=== PATIENT | female | born 1965 | race Caucasian/White ===

== ENCOUNTER 2019-03-07 08:41 | Emergency (ER) | payer MEDICAID ==
[2019-03-07] MEDS ORDERED: Sodium Chloride 0.9% 10 ML Syringe FLUSH PRN ×2 (08:46→08:49)
[2019-03-07] MEDS ORDERED: Aspirin 81 MG Tab.Chew PO ONE (08:47)
--- NOTE | 2019-03-07 09:08 | EDM.PDOC ---
ED HPI GENERAL MEDICAL PROBLEM - General Chief Complaint: Chest Pain Stated Complaint: CHEST PAIN Time Seen by Provider: 03/07/19 08:45 Source of Information: Reports: Patient History Limitations: Reports: No Limitations - History of Present Illness INITIAL COMMENTS - FREE TEXT/NARRATIVE: Pt. presents to ER with complaints of acute anterior substernal chest pain. Pt. states that she developed the discomfort when she was getting ready for work today. It did not wake her from sleep. She states that the pain is located in the mid chest and does not radiate elsewhere. No fever or chills. No pain in jaw , arms, neck or back. Denies any nausea or vomiting. No recent illness. No fever or chills that she is aware of. She denies any trauma. Pt. smells highly of hard alcohol. She became upset when she asked how much she drank. She stated "enough". She states that the discomfort is not made worse with movement or deep breathing. Onset: Today Onset Date: 03/07/19 Location: Reports: Chest Quality: Reports: Burning Severity: Moderate Mid-Sternal Chest Pain Score (Numeric/FACES): 10 - Related Data Allergies Allergy/AdvReac Type Severity Reaction Status Date / Time Penicillins Allergy Other Verified 03/07/19 09:08 Home Meds: Home Meds Albuterol Sulfate [Proair Hfa] 2 puff IH Q4H PRN 03/07/19 [History] FLUoxetine HCl [Prozac] 2 tab PO DAILY 03/07/19 [History] Lisinopril/Hydrochlorothiazide [Zestoretic 20-12.5 mg Tablet] 0.5 tab PO DAILY 03/07/19 [History] Omeprazole Magnesium [Prilosec Otc] 20 mg PO DAILY 03/07/19 [History] ED ROS GENERAL - Review of Systems Review Of Systems: See Below Constitutional: Reports: No Symptoms HEENT: Reports: No Symptoms Respiratory: Reports: No Symptoms. Denies: Shortness of Breath Cardiovascular: Reports: Chest Pain Endocrine: Reports: No Symptoms GI/Abdominal: Reports: No Symptoms : Reports: No Symptoms Musculoskeletal: Reports: No Symptoms Skin: Reports: No Symptoms Neurological: Reports: No Symptoms Psychiatric: Reports: No Symptoms Hematologic/Lymphatic: Reports: No Symptoms Immunologic: Reports: No Symptoms ED EXAM, GENERAL - Physical Exam Exam: See Below Exam Limited By: No Limitations General Appearance: Alert, WD/WN, No Apparent Distress Eye Exam: Bilateral Eye: Normal Fundi, Normal Inspection, PERRL Head: Atraumatic, Normocephalic Neck: Normal Inspection, Supple, Non-Tender, Full Range of Motion Respiratory/Chest: No Respiratory Distress, Lungs Clear, Normal Breath Sounds, No Accessory Muscle Use, Chest Non-Tender Cardiovascular: Normal Peripheral Pulses, Regular Rate, Rhythm, No Edema, No Gallop, No JVD, No Murmur, No Rub GI/Abdominal: Normal Bowel Sounds, Soft, Non-Tender, No Organomegaly, No Distention, No Abnormal Bruit, No Mass (Female) Exam: Deferred Rectal (Female) Exam: Deferred Back Exam: Normal Inspection, Full Range of Motion, NT Extremities: Normal Inspection, Normal Range of Motion, Non-Tender, Normal Capillary Refill, No Pedal Edema Neurological: Alert, Oriented, CN II-XII Intact, Normal Cognition, Normal Gait, Normal Reflexes, No Motor/Sensory Deficits Psychiatric: Normal Affect, Normal Mood Skin Exam: Warm, Dry, Intact, Normal Color, No Rash EKG INTERPRETATION Rhythm: NSR [place]: Normal P-Wave: Present QRS: Normal ST-T: Normal QT: Normal Course - Vital Signs Last Recorded V/S: Last Vital Signs Temp 36.6 C 03/07/19 09:12 Pulse 67 03/07/19 09:12 Resp 14 03/07/19 09:12 BP 128/78 03/07/19 09:12 Pulse Ox 96 03/07/19 09:12 - Orders/Labs/Meds Orders: Active Orders 24 hr Category Date Time Status Cardiac Monitoring [RC] CONTINUOUS Care 03/07/19 08:46 Active EKG Documentation Completion [RC] STAT Care 03/07/19 08:46 Active Peripheral IV Insertion Adult [OM.PC] Routine Oth 03/07/19 08:47 Ordered Peripheral IV Insertion Adult [OM.PC] Routine Oth 03/07/19 08:50 Ordered Labs: Laboratory Tests 03/07/19 03/07/19 03/07/19 Range/Units 09:00 09:00 09:00 WBC 4.1 (4.0-10.0) x10^3/uL RBC 4.22 (4.00-5.50) x10^6/uL Hgb 13.8 (12.0-16.0) g/dL Hct 38.4 (33.0-47.0) % MCV 91.0 (78.0-93.0) fL MCH 32.7 H (26.0-32.0) pg MCHC 35.9 (32.0-36.0) g/dL RDW Coeff of Nanette 11.9 (10.0-15.0) % Plt Count 261 (130-400) x10^3/uL Neut % (Auto) 51.7 (50.0-80.0) % Lymph % (Auto) 37.6 (25.0-50.0) % [place] % (Auto) 7.8 (2.0-11.0) % Eos % (Auto) 2.7 (0.0-4.0) % Baso % (Auto) 0.2 (0.2-1.2) % PT 10.2 (10.0-12.8) SEC INR 0.9 L (2.0-3.5) D-Dimer, Quantitative 0.52 (<=0.58) mg/LFEU Sodium 136 (136-145) mmol/L Potassium 3.2 L (3.5-5.1) mmol/L Chloride 97 L (98-107) mmol/L Carbon Dioxide 27 (21-32) mmol/L Anion Gap 15.2 (10-20) mmol/L BUN 5 L (7-18) mg/dL Creatinine 0.6 (0.55-1.02) mg/dL Est Cr Clr Drug Dosing TNP Estimated GFR (MDRD) > 60 Glucose 74 (74-106) mg/dL Calcium 8.9 (8.5-10.1) mg/dL Corrected Calcium 9.30 (8.5-10.1) mg/dL Phosphorus 4.5 (2.6-4.7) mg/dL Magnesium 1.6 L (1.8-2.4) mg/dL Total Bilirubin 0.8 (0.2-1.0) mg/dL AST 61 H (15-37) U/L ALT 58 (14-59) U/L Alkaline Phosphatase 87 (46-116) U/L Troponin I < 0.017 (<=0.056) ng/mL NT-Pro-B Natriuret Pep 218 H (<=125) pg/mL Total Protein 7.3 (6.4-8.2) g/dL Albumin 3.5 (3.4-5.0) g/dL Globulin 3.8 Albumin/Globulin Ratio 0.92 TSH, Ultra Sensitive 0.771 (0.358-3.74) uIU/mL Ethyl Alcohol (0-3) mg/dL 03/07/19 Range/Units 09:00 WBC (4.0-10.0) x10^3/uL RBC (4.00-5.50) x10^6/uL Hgb (12.0-16.0) g/dL Hct (33.0-47.0) % MCV (78.0-93.0) fL MCH (26.0-32.0) pg MCHC (32.0-36.0) g/dL RDW Coeff of Nanette (10.0-15.0) % Plt Count (130-400) x10^3/uL Neut % (Auto) (50.0-80.0) % Lymph % (Auto) (25.0-50.0) % [place] % (Auto) (2.0-11.0) % Eos % (Auto) (0.0-4.0) % Baso % (Auto) (0.2-1.2) % PT (10.0-12.8) SEC INR (2.0-3.5) D-Dimer, Quantitative (<=0.58) mg/LFEU Sodium (136-145) mmol/L Potassium (3.5-5.1) mmol/L Chloride (98-107) mmol/L Carbon Dioxide (21-32) mmol/L Anion Gap (10-20) mmol/L BUN (7-18) mg/dL Creatinine (0.55-1.02) mg/dL Est Cr Clr Drug Dosing Estimated GFR (MDRD) Glucose (74-106) mg/dL Calcium (8.5-10.1) mg/dL Corrected Calcium (8.5-10.1) mg/dL Phosphorus (2.6-4.7) mg/dL Magnesium (1.8-2.4) mg/dL Total Bilirubin (0.2-1.0) mg/dL AST (15-37) U/L ALT (14-59) U/L Alkaline Phosphatase (46-116) U/L Troponin I (<=0.056) ng/mL NT-Pro-B Natriuret Pep (<=125) pg/mL Total Protein (6.4-8.2) g/dL Albumin (3.4-5.0) g/dL Globulin Albumin/Globulin Ratio TSH, Ultra Sensitive (0.358-3.74) uIU/mL Ethyl Alcohol 113 H (0-3) mg/dL Meds: Medications Discontinued Medications Generic Name Dose Route Start Last Admin Trade Name Freq PRN Reason Stop Dose Admin Aspirin 324 mg 03/07/19 08:47 03/07/19 08:45 Aspirin PO 03/07/19 08:48 324 mg ONETIME ONE Administration Sodium Chloride 10 ml 03/07/19 08:46 Saline Flush FLUSH ASDIRECTED PRN Keep Vein Open Sodium Chloride 10 ml 03/07/19 08:49 Saline Flush FLUSH ASDIRECTED PRN Keep Vein Open - Radiology Interpretation Free Text/Narrative:: chest x-ray is negative Departure - Departure Time of Disposition: 09:45 Disposition: Home, Self-Care 01 Condition: Good Clinical Impression: Atypical chest pain - Discharge Information Instructions: Nonspecific Chest Pain, [id number] Referrals: PCP,Unknown [Primary Care Provider] - Forms: ED Department Discharge Additional Instructions: Home to rest. Drink plenty of fluids. Return to ER if you have increased discomfort. Recheck in clinic in 10-14 days. - My Orders Last 24 Hours: My Active Orders 03/07/19 08:46 Cardiac Monitoring [RC] CONTINUOUS EKG Documentation Completion [RC] STAT 03/07/19 08:47 Peripheral IV Insertion Adult [OM.PC] Routine 03/07/19 08:50 Peripheral IV Insertion Adult [OM.PC] Routine - Assessment/Plan Last 24 Hours: My Active Orders 03/07/19 08:46 Cardiac Monitoring [RC] CONTINUOUS EKG Documentation Completion [RC] STAT 03/07/19 08:47 Peripheral IV Insertion Adult [OM.PC] Routine 03/07/19 08:50 Peripheral IV Insertion Adult [OM.PC] Routine Plan: Home to rest. Drink plenty of fluids. Return to ER if you have increased discomfort. Recheck in clinic in 10-14 days.
--- NOTE | 2019-03-07 09:36 | CR ---
[id number] RAD/RAD Chest PA or AP 1V EXAM: SINGLE VIEW CHEST. INDICATION: CHEST PAIN COMPARISON: NO PREVIOUS SIMILAR EXAM IS AVAILABLE FINDINGS: The lungs are clear. The cardiomediastinal contour is normal. There is no pneumothorax. There is a slight scoliosis. IMPRESSION: NO PNEUMONIA OR EDEMA. NO PNEUMOTHORAX. Jorge Najera MD 03/07/19 0934 Thank you for allowing us to participate in the care of your patient.
[2019-03-07 09:46] LABS: ANION GAP 15.2 mmol/L (10-20); CHLORIDE,CL 97 mmol/L (98-107); SODIUM,NA 136 mmol/L (136-145)
== END 2019-03-07 09:57 | disposition home or self-care (01) ==
LOC: VM.ED 08:41
DX: R07.2 Precordial pain (principal); Z88.0 Allergy status to penicillin; Z79.899 Other long term (current) drug therapy
CPT/HCPCS: 71045; 80053; 83735; 83880; 84100; 84443; 84484; 85025; 85379; 85610; 93005; 99285-25; A9270-GY; G0480

== ENCOUNTER 2020-09-14 23:06 | Emergency (ER) | payer MEDICAID ==
--- NOTE | 2020-09-15 00:13 | EDM.PDOC ---
ED HPI GENERAL MEDICAL PROBLEM - General Chief Complaint: Lower Extremity Injury/Pain Stated Complaint: leg pain Time Seen by Provider: 09/14/20 23:10 Source of Information: Reports: Patient History Limitations: Reports: Intoxication - History of Present Illness INITIAL COMMENTS - FREE TEXT/NARRATIVE: Pt. presents to ER with complaints of distal upper leg/knee pain post fall. Pt. states that she was going downstairs to do laundry and fell. Pt. states that her injury is isolated to her distal upper leg/superior knee area. She states that she does not have any pain unless she is bearing weight in the extremity. Denies striking head. No neck pain. Denies any chest or abdominal trauma. No other musculoskeletal complaint. Pt. admits to drinking alcohol today, but is alert to time, date and place. She can remember the events of the incident, and denies any LOC. Denies any fever, chills, weakness, cough, chest pain or shortness of breath. Onset: Today Location: Reports: Lower Extremity, Right Quality: Reports: Throbbing Severity: Moderate Right Leg Pain Score (Numeric/FACES): 2 - Related Data Allergies Allergy/AdvReac Type Severity Reaction Status Date / Time hydrocodone Allergy Other Verified 09/14/20 23:08 latex Allergy Rash Verified 09/14/20 23:08 Penicillins Allergy Other Verified 09/14/20 23:08 Home Meds: Home Meds Albuterol Sulfate [Proair Hfa] 2 puff IH Q4H PRN 03/07/19 [History] FLUoxetine HCl [Prozac] 2 tab PO DAILY 03/07/19 [History] Lisinopril/Hydrochlorothiazide [Zestoretic 20-12.5 mg Tablet] 0.5 tab PO DAILY 03/07/19 [History] Omeprazole Magnesium [Prilosec Otc] 20 mg PO DAILY 03/07/19 [History] Past Medical History Cardiovascular History: Reports: Hypertension Respiratory History: Reports: COPD Gastrointestinal History: Reports: Other (See Below) Other Gastrointestinal History: positive fit test Psychiatric History: Reports: Anxiety Social & Family History - Tobacco Use Tobacco Use Status *Q: Current Every Day Tobacco User Years of Tobacco use: 30 Packs/Tins Daily: 1 Review of Systems - Review of Systems Review Of Systems: See Below Constitutional: Reports: No Symptoms Ears: Reports: No Symptoms Nose: Reports: No Symptoms Mouth/Throat: Reports: No Symptoms Respiratory: Reports: No Symptoms Cardiovascular: Reports: No Symptoms GI/Abdominal: Reports: No Symptoms Musculoskeletal: Reports: Leg Pain Skin: Reports: No Symptoms Neurological: Reports: No Symptoms Psychiatric: Reports: No Symptoms ED EXAM, GENERAL - Physical Exam Exam: See Below Exam Limited By: No Limitations General Appearance: Alert, WD/WN, No Apparent Distress Extremities: Normal Inspection, Other (No tenderness on palpation of the R lower extremity. No obvious crepitus. No increased discomfort with active of passive ROM to the R knee. She does complain of discomfort with weight bearing, however.) Course - Vital Signs Last Recorded V/S: Last Vital Signs Temp 36.5 C 09/14/20 23:10 Pulse 81 09/14/20 23:10 Resp 18 09/14/20 23:10 BP 178/99 H 09/14/20 23:10 Pulse Ox 99 09/14/20 23:10 - Orders/Labs/Meds Orders: Active Orders 24 hr Category Date Time Status Femur Min 1V Rt [CR] Stat Exams 09/14/20 23:15 Taken Knee 3V Rt [CR] Stat Exams 09/14/20 23:15 Taken Departure - Departure Time of Disposition: 00:45 Disposition: Home, Self-Care 01 Clinical Impression: Right knee sprain - Discharge Information Instructions: Acute Knee Pain, Adult Referrals: PCP,None [Primary Care Provider] - Forms: ED Department Discharge Additional Instructions: Home to rest. I do not see any obvious fracture. If the radiologist sees anything I will let you know. Ice painful area for 10-15 min every 1-2 hours. Follow-up in clinic in 10-14 days. Sepsis Event Note (ED) - Evaluation Sepsis Screening Result: No Definite Risk - Focused Exam Vital Signs: Vital Signs Temp Pulse Resp BP Pulse Ox 09/14/20 23:10 36.5 C 81 18 178/99 H 99 - My Orders Last 24 Hours: My Active Orders 09/14/20 23:15 Femur Min 1V Rt [CR] Stat Knee 3V Rt [CR] Stat - Assessment/Plan Last 24 Hours: My Active Orders 09/14/20 23:15 Femur Min 1V Rt [CR] Stat Knee 3V Rt [CR] Stat Plan: No fracture noted on radiographs of R knee/femur. She does have an effusion of the R knee. NADIR wrap applied. Pt. is anxious to be discharged. Advised to take 3 ibuprofen 200mg tabs every 6 hours. Ice knee for 20 min every hour. Elevate extremity. If not improvement in discomfort, follow-up in clinic in 10-14 days for further evaluation/imaging.
--- NOTE | 2020-09-15 09:57 | CR ---
[id number] RAD/RAD Femur Right 1V Exam: RAD Femur Right 1V Clinical Data: TRAUMA COMPARISON: NO PREVIOUS SIMILAR EXAM IS AVAILABLE FINDINGS: No fracture or dislocation is seen IMPRESSION: NEGATIVE EXAM Jorge Najera MD 09/15/20 0956 Thank you for allowing us to participate in the care of your patient.
--- NOTE | 2020-09-15 09:58 | CR ---
[id number] RAD/RAD Knee Right 3V EXAM: RAD Knee Right 3V CLINICAL DATA: TRAUMA COMPARISON: NO PREVIOUS SIMILAR EXAM IS AVAILABLE. FINDINGS: There is a large effusion There is no fracture or dislocation. IMPRESSION: SOFT TISSUE INJURY Jorge Najera MD 09/15/20 0957 Thank you for allowing us to participate in the care of your patient.
== END 2020-09-15 00:45 | disposition home or self-care (01) ==
LOC: VM.ED 23:06
DX: S83.91XA Sprain of unspecified site of right knee, initial encounter (principal); I10 Essential (primary) hypertension; J44.9 Chronic obstructive pulmonary disease, unspecified; F41.9 Anxiety disorder, unspecified; F17.210 Nicotine dependence, cigarettes, uncomplicated; Z79.899 Other long term (current) drug therapy; Z88.5 Allergy status to narcotic agent; Z91.040 Latex allergy status; Z88.0 Allergy status to penicillin; W10.9XXA Fall (on) (from) unspecified stairs and steps, initial encounter
CPT/HCPCS: 73562-RT; 99283; 99283-25

== ENCOUNTER 2020-12-08 09:37 | Emergency (ER) | payer MEDICAID ==
[2020-12-08] MEDS ORDERED: Sodium Chloride 0.9% 10 ML Syringe FLUSH PRN (10:10)
[2020-12-08] MEDS ORDERED: Lactated Ringers 1,000 ML IV ONE (10:13)
[2020-12-08] MEDS ORDERED: diphenhydrAMINE 50 MG/ML SDV IVPUSH ONE (10:13)
[2020-12-08] MEDS ORDERED: Morphine 4 MG/ML Syringe IVPUSH ONE (10:14)
[2020-12-08 10:50] LABS: PTT,PARTIAL THROMBOPLSTIN TIME 23.8 SEC (25.6-32.8)
[2020-12-08 10:53] LABS: CHLORIDE,CL 95 mmol/L (98-107); SODIUM,NA 133 mmol/L (136-145)
[2020-12-08 10:54] LABS: ANION GAP 13.6 mmol/L (5-15)
[2020-12-08 11:23] LABS: BARBITURATE SCREEN,URINE NEGATIVE (NEGATIVE); BENZODIAZEPINES SCREEN,URINE NEGATIVE (NEGATIVE); EDDP,URINE SCREEN NEGATIVE (NEGATIVE); METHAMPHETAMINE SCREEN, URINE NEGATIVE (NEGATIVE); TCA SCREEN,URINE NEGATIVE (NEGATIVE); THC SCREEN,URINE 50 NG/ML NEGATIVE (NEGATIVE)
[2020-12-08] MEDS ORDERED: Iopamidol 612 MG/ML 100 ML Bottle IVPUSH ONE (12:06)
--- NOTE | 2020-12-08 12:25 | CR ---
[id number] RAD/RAD Chest PA And Lateral EXAM: RAD Chest PA And Lateral INDICATION: FALL RIGHT RIB PAIN, SHORTNESS OF BREATH. COMPARISON: March 16, 2019. DISCUSSION: Cardiomediastinal silhouette is normal in size and contour. Lungs are clear. No pleural effusion or pneumothorax. No visible fracture. IMPRESSION: Negative examination of the chest. Jefferson Adams MD 12/08/20 [id number] Thank you for allowing us to participate in the care of your patient.
--- NOTE | 2020-12-08 12:33 | CT ---
[id number] CT/CT Abdomen Pelvis W IV EXAM: CT Abdomen Pelvis W IV CLINICAL DATA: FALL RIGHT LOWER FLANK TRAUMA, ? HUDSON TURNERS SYNDROME. COMPARISON STUDY: None. FINDINGS: Lung bases are clear. Diffusely decreased hepatic density suggesting underlying steatosis. Correlate with LFTs. No focal lesion or biliary ductal dilation. Portal vein is normal in caliber. Gallbladder and common bile duct are unremarkable. Pancreas, adrenal glands, spleen, and kidneys are unremarkable. No bowel obstruction or inflammation. Appendix is normal. No lymphadenopathy, free fluid, or pneumoperitoneum. Uterus and adnexal regions are unremarkable. Urinary bladder is normal. Aorta atherosclerosis. No aneurysm. L5-S1 diffuse disc bulge most prominent along its posterior segment seen best on series 4 image 54. In combination with facet joint arthropathy, there does appear to be moderate to moderate/severe central canal stenosis. 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 Subchondral remodeling suggests full-thickness cartilage thinning/fissuring. Bilateral sacroiliac osteoarthritis as well. Acute nondisplaced right 11th and 12th rib fractures. IMPRESSION: Acute nondisplaced right 11th and 12th rib fractures. No acute findings in the abdomen or pelvis. Chronic findings are described above. Jefferson Adams MD 12/08/20 4545 Thank you for allowing us to participate in the care of your patient.
[2020-12-08] MEDS ORDERED: Ketorolac 30 MG/ML SDV IM ONE (13:11)
[2020-12-08] MEDS ORDERED: LORazepam 2 MG/ML SDV IVPUSH ONE (13:12)
[2020-12-08] MEDS ORDERED: MVI, Adult with Vitamin K 10 ML, Folic Acid 1 MG, Thiamine 100 MG in Sodium Chloride 0.... IV SCH ×4 (13:15)
[2020-12-08] MEDS ORDERED: Multivitamins w-Iron/Ca/FA/Min 1 TAB, Thiamine 100 MG, Folic Acid 1 MG, Magnesium Oxide... PO ONE ×3 (13:15)
[2020-12-08] MEDS ORDERED: Ketorolac 30 MG/ML SDV IVPUSH ONE (13:16)
[2020-12-08] MEDS ORDERED: Take Home: traMADol 50 MG, 4 Tab Pack PO ONE (13:22)
--- NOTE | 2020-12-08 13:28 | EDM.PDOC ---
ED HPI GENERAL MEDICAL PROBLEM - General Chief Complaint: General Stated Complaint: RT SIDE PAIN Time Seen by Provider: 12/08/20 09:45 Source of Information: Reports: Patient History Limitations: Reports: No Limitations - History of Present Illness INITIAL COMMENTS - FREE TEXT/NARRATIVE: Patient comes emergency department today from home with complaints of right rib pain and abdominal pain. This patient drinks on a daily basis. She was intoxicated last night when she was walking into her garage she tripped on the ground fell landing on the right side of her abdomen and her rib cage striking it on the snowblower. From what she can recall she did not hit her head. She did not have a loss of consciousness. She went to bed and woke up this morning and has severe pain in the right chest wall as well as her abdomen. She has no nausea or vomiting. No headache visual acuity changes. No diplopia. No neck pain. No back pain. She complains of the left lateral mid axillary chest wall pain with deep breath cough and movement. She is really not short of breath until she takes a deep breath or moves. She has no midsternal chest pain. She denies any generalized weakness dizziness lightheadedness. No syncope. She does complain of right flank pain and right lower abdominal pain. She noticed there was a bruise in the right lower aspect of her abdomen. She denies any hematuria dysuria or urinary frequency. No black or tarry stools. No change in the functionality of her upper or lower extremities. She does have some chronic shaking to her arms especially after heavy night of drinking. No Covid exposure no Covid symptoms. Right Thoracic Pain Score (Numeric/FACES): 10 - Related Data Allergies Allergy/AdvReac Type Severity Reaction Status Date / Time hydrocodone Allergy Other Verified 12/08/20 09:48 latex Allergy Rash Verified 12/08/20 09:48 oxycodone Allergy Nausea and Verified 12/08/20 09:48 Vomiting Penicillins Allergy Other Verified 12/08/20 09:48 Home Meds: Home Meds Albuterol Sulfate [Proair Hfa] 2 puff IH Q4H PRN 03/07/19 [History] FLUoxetine HCl [Prozac] 2 tab PO DAILY 03/07/19 [History] Lisinopril/Hydrochlorothiazide [Zestoretic 20-12.5 mg Tablet] 0.5 tab PO DAILY 03/07/19 [History] Omeprazole Magnesium [Prilosec Otc] 20 mg PO DAILY 03/07/19 [History] Harley/Vit B12/Folic Acid/Vit B6 [Folic Acid-Vit B6-Vit B12 Tab] 1 each PO DAILY #30 tablet 12/08/20 [Rx] Magnesium Oxide 400 mg PO DAILY #30 tab 12/08/20 [Rx] Thiamine [Vitamin B-1] 100 mg PO DAILY #30 tablet 12/08/20 [Rx] traMADol [Ultram] 50 mg PO Q6H PRN #6 tab 12/08/20 [Rx] Past Medical History Cardiovascular History: Reports: Hypertension Respiratory History: Reports: COPD Gastrointestinal History: Reports: Other (See Below) Other Gastrointestinal History: positive fit test Psychiatric History: Reports: Anxiety Social & Family History - Tobacco Use Tobacco Use Status *Q: Current Every Day Tobacco User Years of Tobacco use: 30 Packs/Tins Daily: 1 - Recreational Drug Use Recreational Drug Use: No ED ROS GENERAL - Review of Systems Review Of Systems: Comprehensive ROS is negative, except as noted in HPI. ED EXAM, GENERAL - Physical Exam Exam: See Below Free Text/Narrative:: The patient is anxious and quite shakey and tremulous with any physical movement. She does not appear in an respiratory distress. Exam Limited By: No Limitations General Appearance: Alert, WD/WN, Anxious Eye Exam: Bilateral Eye: EOMI, PERRL Ears: Normal External Exam, Normal TMs Nose: Normal Inspection, Normal Mucosa Throat/Mouth: Normal Inspection, Normal Lips, Normal Oropharynx, Normal Voice Head: Atraumatic, Normocephalic Neck: Normal Inspection, Supple, Non-Tender, Full Range of Motion. No: Tender Lateral, Tender Midline Respiratory/Chest: No Respiratory Distress, Normal Breath Sounds, No Accessory Muscle Use, Splinting, Other (She does have tenderness along the right mid axillary border at the very distal end of the ribs about 07/07/12. There is no flail segment. There is no bruising swelling ecchymosis subcutaneous emphysema.). No: Retractions Cardiovascular: Normal Peripheral Pulses, Regular Rate, Rhythm Peripheral Pulses: 2+: Radial (L), Radial (R), Posterior Tibial (L), Posterior Tibial (R), Dorsalis Pedis (L), Dorsalis Pedis (R) GI/Abdominal: Normal Bowel Sounds, Soft, Pelvis Stable, Distended, Guarding (TO the RUQ and RLQ right next to ecchymosis concerning for Lance turners sign.), Tender (She has generalized tenderness ). No: Rigid, Rebound (Female) Exam: Deferred Rectal (Female) Exam: Deferred Back Exam: Normal Inspection, Full Range of Motion, CVA Tenderness (R). No: CVA Tenderness (L), Paraspinal Tenderness, Vertebral Tenderness Extremities: Normal Inspection, Normal Range of Motion, No Pedal Edema, Normal Capillary Refill Neurological: Alert, Oriented, Normal Cognition, Normal Gait, No Motor/Sensory Deficits Psychiatric: Anxious Skin Exam: Warm, Dry, Normal Color, No Rash Lymphatic: No Adenopathy Course - Vital Signs Last Recorded V/S: Last Vital Signs Temp 97.9 F 12/08/20 09:45 Pulse 94 12/08/20 09:45 Resp 20 12/08/20 09:45 BP 145/90 H 12/08/20 09:45 Pulse Ox 96 12/08/20 09:45 - Orders/Labs/Meds Orders: Active Orders 24 hr Category Date Time Status Peripheral IV Insertion Adult [OM.PC] Stat Oth 12/08/20 10:10 Ordered Labs: Laboratory Tests 12/08/20 12/08/20 12/08/20 Range/Units 10:24 10:24 10:24 WBC 7.0 (4.0-10.0) x10^3/uL RBC 4.47 (4.00-5.50) x10^6/uL Hgb 14.8 (12.0-16.0) g/dL Hct 42.1 (33.0-47.0) % MCV 94.2 H D (78.0-93.0) fL MCH 33.1 H (26.0-32.0) pg MCHC 35.2 (32.0-36.0) g/dL RDW Coeff of Nanette 11.7 (10.0-15.0) % Plt Count 228 (130-400) x10^3/uL Neut % (Auto) 73.4 (50.0-80.0) % Lymph % (Auto) 17.7 L (25.0-50.0) % [place] % (Auto) 7.7 (2.0-11.0) % Eos % (Auto) 1.1 (0.0-4.0) % Baso % (Auto) 0.1 L (0.2-1.2) % PT 9.9 (9.9-12.5) SEC INR 0.9 L (2.0-3.5) APTT 23.8 L (25.6-32.8) SEC Sodium 133 L (136-145) mmol/L Potassium 3.6 (3.5-5.1) mmol/L Chloride 95 L (98-107) mmol/L Carbon Dioxide 28 (21-32) mmol/L Anion Gap 13.6 (5-15) mmol/L BUN 4 L (7-18) mg/dL Creatinine 0.7 (0.55-1.02) mg/dL Est Cr Clr Drug Dosing TNP Estimated GFR (MDRD) > 60 Glucose 85 (74-106) mg/dL Lactic Acid (0.4-2.0) mmol/L Calcium 9.2 (8.5-10.1) mg/dL Corrected Calcium 9.36 (8.5-10.1) mg/dL Magnesium (1.8-2.4) mg/dL Total Bilirubin 0.8 (0.2-1.0) mg/dL AST 95 H (15-37) U/L ALT 89 H (14-59) U/L Alkaline Phosphatase 109 (46-116) U/L Total Protein 8.0 (6.4-8.2) g/dL Albumin 3.8 (3.4-5.0) g/dL Globulin 4.2 Albumin/Globulin Ratio 0.90 Lipase 112 (73-393) U/L Urine Color (YELLOW) Urine Appearance (CLEAR) Urine pH (5.0-8.0) Ur Specific [place] Urine Protein (NEGATIVE) mg/dL Urine Glucose (UA) (NEGATIVE) mg/dL Urine Ketones (NEGATIVE) mg/dL Urine Occult Blood (NEGATIVE) Urine Nitrite (NEGATIVE) Urine Bilirubin (NEGATIVE) Urine Urobilinogen (0.2) EU/dL Ur Leukocyte Esterase (NEGATIVE) Urine Opiates Screen (NEGATIVE) Ur Buprenorphine Scrn (NEGATIVE) Ur Oxycodone Screen (NEGATIVE) Ur EDDP (Meth Metab) (NEGATIVE) Urine Methadone Screen (NEGATIVE) Ur Barbiturates Screen (NEGATIVE) Ur Tricyclics Screen (NEGATIVE) Ur Phencyclidine Scrn (NEGATIVE) Ur Amphetamine Screen (NEGATIVE) U Methamphetamines Scrn (NEGATIVE) Urine MDMA Screen (NEGATIVE) U Benzodiazepines Scrn (NEGATIVE) U Cocaine Metab Screen (NEGATIVE) U Marijuana (THC) Screen (NEGATIVE) Ethyl Alcohol 64 H (0-3) mg/dL 12/08/20 12/08/20 12/08/20 Range/Units 10:24 10:24 11:11 WBC (4.0-10.0) x10^3/uL RBC (4.00-5.50) x10^6/uL Hgb (12.0-16.0) g/dL Hct (33.0-47.0) % MCV (78.0-93.0) fL MCH (26.0-32.0) pg MCHC (32.0-36.0) g/dL RDW Coeff of Nanette (10.0-15.0) % Plt Count (130-400) x10^3/uL Neut % (Auto) (50.0-80.0) % Lymph % (Auto) (25.0-50.0) % [place] % (Auto) (2.0-11.0) % Eos % (Auto) (0.0-4.0) % Baso % (Auto) (0.2-1.2) % PT (9.9-12.5) SEC INR (2.0-3.5) APTT (25.6-32.8) SEC Sodium (136-145) mmol/L Potassium (3.5-5.1) mmol/L Chloride (98-107) mmol/L Carbon Dioxide (21-32) mmol/L Anion Gap (5-15) mmol/L BUN (7-18) mg/dL Creatinine (0.55-1.02) mg/dL Est Cr Clr Drug Dosing Estimated GFR (MDRD) Glucose (74-106) mg/dL Lactic Acid 1.7 (0.4-2.0) mmol/L Calcium (8.5-10.1) mg/dL Corrected Calcium (8.5-10.1) mg/dL Magnesium 1.6 L (1.8-2.4) mg/dL Total Bilirubin (0.2-1.0) mg/dL AST (15-37) U/L ALT (14-59) U/L Alkaline Phosphatase (46-116) U/L Total Protein (6.4-8.2) g/dL Albumin (3.4-5.0) g/dL Globulin Albumin/Globulin Ratio Lipase (73-393) U/L Urine Color Yellow (YELLOW) Urine Appearance Clear (CLEAR) Urine pH 7.0 (5.0-8.0) Ur Specific [place] 1.015 Urine Protein Negative (NEGATIVE) mg/dL Urine Glucose (UA) Negative (NEGATIVE) mg/dL Urine Ketones Negative (NEGATIVE) mg/dL Urine Occult Blood Negative (NEGATIVE) Urine Nitrite Negative (NEGATIVE) Urine Bilirubin Negative (NEGATIVE) Urine Urobilinogen 0.2 (0.2) EU/dL Ur Leukocyte Esterase Negative (NEGATIVE) Urine Opiates Screen (NEGATIVE) Ur Buprenorphine Scrn (NEGATIVE) Ur Oxycodone Screen (NEGATIVE) Ur EDDP (Meth Metab) (NEGATIVE) Urine Methadone Screen (NEGATIVE) Ur Barbiturates Screen (NEGATIVE) Ur Tricyclics Screen (NEGATIVE) Ur Phencyclidine Scrn (NEGATIVE) Ur Amphetamine Screen (NEGATIVE) U Methamphetamines Scrn (NEGATIVE) Urine MDMA Screen (NEGATIVE) U Benzodiazepines Scrn (NEGATIVE) U Cocaine Metab Screen (NEGATIVE) U Marijuana (THC) Screen (NEGATIVE) Ethyl Alcohol (0-3) mg/dL 12/08/20 Range/Units 11:11 WBC (4.0-10.0) x10^3/uL RBC (4.00-5.50) x10^6/uL Hgb (12.0-16.0) g/dL Hct (33.0-47.0) % MCV (78.0-93.0) fL MCH (26.0-32.0) pg MCHC (32.0-36.0) g/dL RDW Coeff of Nanette (10.0-15.0) % Plt Count (130-400) x10^3/uL Neut % (Auto) (50.0-80.0) % Lymph % (Auto) (25.0-50.0) % [place] % (Auto) (2.0-11.0) % Eos % (Auto) (0.0-4.0) % Baso % (Auto) (0.2-1.2) % PT (9.9-12.5) SEC INR (2.0-3.5) APTT (25.6-32.8) SEC Sodium (136-145) mmol/L Potassium (3.5-5.1) mmol/L Chloride (98-107) mmol/L Carbon Dioxide (21-32) mmol/L Anion Gap (5-15) mmol/L BUN (7-18) mg/dL Creatinine (0.55-1.02) mg/dL Est Cr Clr Drug Dosing Estimated GFR (MDRD) Glucose (74-106) mg/dL Lactic Acid (0.4-2.0) mmol/L Calcium (8.5-10.1) mg/dL Corrected Calcium (8.5-10.1) mg/dL Magnesium (1.8-2.4) mg/dL Total Bilirubin (0.2-1.0) mg/dL AST (15-37) U/L ALT (14-59) U/L Alkaline Phosphatase (46-116) U/L Total Protein (6.4-8.2) g/dL Albumin (3.4-5.0) g/dL Globulin Albumin/Globulin Ratio Lipase (73-393) U/L Urine Color (YELLOW) Urine Appearance (CLEAR) Urine pH (5.0-8.0) Ur Specific [place] Urine Protein (NEGATIVE) mg/dL Urine Glucose (UA) (NEGATIVE) mg/dL Urine Ketones (NEGATIVE) mg/dL Urine Occult Blood (NEGATIVE) Urine Nitrite (NEGATIVE) Urine Bilirubin (NEGATIVE) Urine Urobilinogen (0.2) EU/dL Ur Leukocyte Esterase (NEGATIVE) Urine Opiates Screen Negative (NEGATIVE) Ur Buprenorphine Scrn Negative (NEGATIVE) Ur Oxycodone Screen Negative (NEGATIVE) Ur EDDP (Meth Metab) Negative (NEGATIVE) Urine Methadone Screen Negative (NEGATIVE) Ur Barbiturates Screen Negative (NEGATIVE) Ur Tricyclics Screen Negative (NEGATIVE) Ur Phencyclidine Scrn Negative (NEGATIVE) Ur Amphetamine Screen Negative (NEGATIVE) U Methamphetamines Scrn Negative (NEGATIVE) Urine MDMA Screen Negative (NEGATIVE) U Benzodiazepines Scrn Negative (NEGATIVE) U Cocaine Metab Screen Negative (NEGATIVE) U Marijuana (THC) Screen Negative (NEGATIVE) Ethyl Alcohol (0-3) mg/dL Meds: Medications Discontinued Medications Generic Name Dose Route Start Last Admin Trade Name Freq PRN Reason Stop Dose Admin Multivitamins/Minerals 1 tab/ 0 tab 12/08/20 13:15 12/08/20 13:33 Thiamine HCl 100 mg/ Folic PO 12/08/20 13:16 1 each Acid 1 mg/ Magnesium Oxide 400 ONETIME ONE Administration mg Diphenhydramine HCl 25 mg 12/08/20 10:13 12/08/20 10:28 Diphenhydramine 50 Mg/Ml Sdv IVPUSH 12/08/20 10:14 25 mg ONETIME ONE Administration Lactated Ringer's 1,000 mls @ 999 mls/hr 12/08/20 10:13 12/08/20 10:25 Ringers, Lactated IV 12/08/20 11:13 999 mls/hr ONETIME ONE Administration Multivitamins/Minerals 10 ml/ 1,011.2 mls @ 999 mls/hr 12/08/20 13:15 Folic Acid 1 mg/ Thiamine HCl IV 12/10/20 14:16 100 mg/ Sodium Chloride Q24H JACOB Iopamidol 100 ml 12/08/20 12:06 12/08/20 12:06 Iopamidol 612 Mg/Ml 100 Ml Bottle IVPUSH 12/08/20 12:07 100 ml ONETIME ONE Administration Ketorolac Tromethamine 30 mg 12/08/20 13:11 Ketorolac 30 Mg/Ml Sdv IM 12/08/20 13:12 ONETIME ONE Ketorolac Tromethamine 30 mg 12/08/20 13:16 12/08/20 13:30 Ketorolac 30 Mg/Ml Sdv IVPUSH 12/08/20 13:17 30 mg ONETIME ONE Administration Lorazepam 1 mg 12/08/20 13:12 12/08/20 13:28 Lorazepam 2 Mg/Ml Sdv IVPUSH 12/08/20 13:13 1 mg STAT ONE Administration Morphine Sulfate 4 mg 12/08/20 10:14 12/08/20 10:31 Morphine 4 Mg/Ml Syringe IVPUSH 12/08/20 10:15 4 mg ONETIME ONE Administration Sodium Chloride 10 ml 12/08/20 10:10 Sodium Chloride 0.9% 10 Ml Syringe FLUSH ASDIRECTED PRN Keep Vein Open Tramadol HCl 1 packet 12/08/20 13:22 12/08/20 13:36 Take Home: Tramadol 50 Mg, 4 Tab Pack PO 12/08/20 13:23 1 packet ONETIME ONE Administration - Radiology Interpretation Free Text/Narrative:: Chest x-ray per radiology shows negative examination of the chest. CT abdomen pelvis with IV contrast. Shows acute nondisplaced right 11th and 12th rib fractures. No acute findings in the abdomen or pelvis. - Re-Assessments/Exams Free Text/Narrative Re-Assessment/Exam: 12/08/20 IV established. Labs are drawn. Benadryl 25 mg IV push for pain and relaxation. Morphine 4 mg IV push. Chest x-ray ordered as well as CT of the abdomen and pelvis. Laboratory evaluation with a white blood cell count of 7.0, hemoglobin 14.8, platelet 228. CMP with a sodium of 133 potassium 3.6 chloride 95, normal creatinine of 0.7 with a BUN of 4, mild elevation of her AST at 95 and ALT at 89 normal T bili and alkaline phosphatase. Lactic acid is normal at 1.7. Magnesium is low at 1.6. Lipase 112. Urinalysis is negative for any blood or infectious appearing concerns. Urine drug screen negative for all tested values. Alcohol level 64. Patient still was quite shaky anxious and nervous. Chest x-ray as well as the abdomen and pelvis concerning for the right 11th and 12th rib fractures. Her pain is much improved after the above therapy. She does admit that she is a daily alcohol drinker and drinks 2 extreme every night. She is not had a night without drinking for about 7 months. She is not interested at this time for any assistance with her alcohol misuse disorder. She was given a banana pack of oral vitamins in the emergency department. She was given ketorolac with improved pain as well as Ativan for alcohol withdrawal syndrome. Although this patient clearly has a history of substance abuse she clearly does have some rib fractures and still needs some pain management. I will send her home with a very short course of tramadol for pain management. She does consent to not taking these if she is drinking which she typically does not do during the day and only at night. Is uninterested for assistance with alcohol treatment at this time although she is interested in discussing this with someone at the [facility] [place]. I did express with her that most likely with her rather large amount of regular alcohol ingestion that her withdrawal could be rather serious and most likely needs to be done in the hospital. At any time when she would like help with this please contact the emergency department or your primary care doctor and we can assist with your medical detox. Otherwise it simply pain management and rest the next couple of days for her rib fractures. She is comfortable with this plan and her questions were answered. Departure - Departure Time of Disposition: 13:22 Disposition: Home, Self-Care 01 Clinical Impression: Alcoholism, Hypomagnesemia Ribs, multiple fractures Qualifiers: Encounter type: initial encounter Fracture type: closed Laterality: right Qualified Code(s): S22.41XA - Multiple fractures of ribs, right side, initial encounter for closed fracture - Discharge Information Prescriptions: Harley/Vit B12/Folic Acid/Vit B6 [Folic Acid-Vit B6-Vit B12 Tab] 1 each PO DAILY #30 tablet Magnesium Oxide 400 mg PO DAILY #30 tab traMADol [Ultram] 50 mg PO Q6H PRN #6 tab PRN Reason: Pain Thiamine [Vitamin B-1] 100 mg PO DAILY #30 tablet Instructions: Rib Fracture, [id number] Referrals: Ingris Clayton, [employer] [Primary Care Provider] - Forms: ED Department Discharge, ED Return to Work/School Form Additional Instructions: Home today rest. Ice to the sore areas. Make sure and drink plenty of fluids especially electrolyte containing materials such as Gatorade and or Powerade. Start taking a daily multivitamin with iron Folic Acid 1mg daily RX to [facility]. Thiamine 100mg daily RX to [facility]. Magnesium 400mg daily. RX to [facility]. Make sure and eat regular meals. Seek out assistance with the [facility] here in [place] or on the phone at [phone]. If you ever are in need of assistance with quitting drinking please see your PCP or recheck in the ED. Return to the ED if new or worsening symptoms. Follow up with PCP in a week if any concerns or assistance. Tylenol and or Ibuprofen as needed for pain. If pain not controlled with above. Tramadol 1 tablet every 6 hrs with food as needed for pain. Caution sedation. DO NOT TAKE WHILE DRINKING ALCOHOL!!!!. Starter pack sent home from the ED and RX sent to the pharmacy. Sepsis Event Note (ED) - Evaluation Sepsis Screening Result: No Definite Risk - Focused Exam Vital Signs: Vital Signs Temp Pulse Resp BP Pulse Ox 12/08/20 09:45 97.9 F 94 20 145/90 H 96 - My Orders Last 24 Hours: My Active Orders 12/08/20 10:10 Peripheral IV Insertion Adult [OM.PC] Stat - Assessment/Plan Last 24 Hours: My Active Orders 12/08/20 10:10 Peripheral IV Insertion Adult [OM.PC] Stat
== END 2020-12-08 13:44 | disposition home or self-care (01) ==
LOC: VM.ED 09:37
DX: S22.41XA Multiple fractures of ribs, right side, initial encounter for closed fracture (principal); I10 Essential (primary) hypertension; J44.9 Chronic obstructive pulmonary disease, unspecified; E83.42 Hypomagnesemia; F10.20 Alcohol dependence, uncomplicated; Y90.3 Blood alcohol level of 60-79 mg/100 ml; Z88.5 Allergy status to narcotic agent; Z91.040 Latex allergy status; Z88.0 Allergy status to penicillin; Z79.899 Other long term (current) drug therapy; Z72.0 Tobacco use; W01.10XA Fall on same level from slipping, tripping and stumbling with subsequent striking against unspecified object, initial encounter
CPT/HCPCS: 71046; 74177; 80053; 80305-QW; 80307; 81003; 83605; 83690; 83735; 85025; 85610; 85730; 96374; 96375; 99284-25; 99285; A9270-GY; J1200; J1885; J2060; J2270; J7120; Q9967

== ENCOUNTER 2022-03-20 08:44 | Inpatient (IN) | payer MEDICAID ==
[2022-03-20] MEDS ORDERED: Sodium Chloride 0.9% 10 ML Syringe FLUSH PRN (09:04)
[2022-03-20] MEDS ORDERED: Sodium Chloride 0.9% 1,000 ML IV ONE (09:36)
[2022-03-20 10:04] LABS: ANION GAP 8.4 mmol/L (5-15)
[2022-03-20] MEDS: Pantoprazole 40 MG Vial IVPUSH SCH ×2 (10:52→21:48)
[2022-03-20] MEDS ORDERED: Ondansetron 4 MG/2 ML SDV IV PRN (13:29)
[2022-03-20] MEDS ORDERED: LORazepam 1 MG Tab PO PRN (13:36)
[2022-03-20] MEDS ORDERED: NS + KCl 20mEq/L 1,000 ML IV SCH (13:45)
[2022-03-20] MEDS ORDERED: MVI, Adult with Vitamin K 10 ML, Folic Acid 1 MG, Thiamine 100 MG in Sodium Chloride 0.... IV SCH ×4 (13:45)
[2022-03-20] MEDS: Magnesium Oxide 400 MG Tab PO SCH (14:41)
[2022-03-20] MEDS: hydrOXYzine HCl 25 MG Tab PO PRN ×2 (14:41→21:51)
[2022-03-20] MEDS: Thiamine 100 MG Tab PO SCH (14:41)
[2022-03-20] MEDS: Folic Acid 1 MG Tab PO SCH (14:41)
[2022-03-20] MEDS: Nicotine 21 MG/24 Hr Patch TRDERM SCH (14:42)
[2022-03-20] MEDS ORDERED: Magnesium Sulfate/Water 100 ML IV ONE (16:15)
[2022-03-20] MEDS: Potassium Chloride 20 MEQ Tab.ER PO SCH (17:00)
[2022-03-20] MEDS: NS with KCl 40mEq 1,000 ML IV SCH (17:00)
[2022-03-20] MEDS: Gabapentin 100 MG Cap PO SCH (17:55)
[2022-03-20] MEDS: Albuterol HFA 18 Gm Inhaler INH PRN (22:07)
[2022-03-21] MEDS: Gabapentin 100 MG Cap PO SCH (01:28)
[2022-03-21] MEDS: NS with KCl 40mEq 1,000 ML IV SCH (01:28)
[2022-03-21] MEDS: Nicotine 21 MG/24 Hr Patch TRDERM SCH (08:16)
[2022-03-21] MEDS: Potassium Chloride 20 MEQ Tab.ER PO SCH (08:17)
[2022-03-21] MEDS: Folic Acid 1 MG Tab PO SCH (08:18)
[2022-03-21] MEDS: Albuterol HFA 18 Gm Inhaler INH PRN (08:18)
[2022-03-21] MEDS: Thiamine 100 MG Tab PO SCH (08:18)
[2022-03-21 08:27] LABS: ANION GAP 8.8 mmol/L (5-15)
[2022-03-21] MEDS: Magnesium Oxide 400 MG Tab PO SCH (08:28)
[2022-03-21] MEDS ORDERED: Lisinopril 20 MG Tab PO SCH (09:00)
[2022-03-21] MEDS ORDERED: FLUoxetine 20 MG Cap PO SCH (09:00)
[2022-03-21] MEDS ORDERED: Mometasone Furoate Powder 220 MCG/Puff 14 Dose Inhaler INH SCH (09:00)
[2022-03-24] MEDS ORDERED: Gabapentin 100 MG Cap PO SCH (14:00)
== END 2022-03-21 09:30 | disposition home or self-care (01) | DRG 558 ==
LOC: VM.ED 08:44 → VM.MS 10:44 → UNDODISIN 11:55 → VM.MS 11:55 → UNDOADMIN 11:55
PROVIDERS: ADMIT Nurse Practitioner Family; ATTEND Nurse Practitioner Family
DX: M62.82 Rhabdomyolysis (principal); E87.2 Acidosis; E44.0 Moderate protein-calorie malnutrition; F33.9 Major depressive disorder, recurrent, unspecified; I10 Essential (primary) hypertension; F10.10 Alcohol abuse, uncomplicated; F41.9 Anxiety disorder, unspecified; E83.42 Hypomagnesemia; F17.210 Nicotine dependence, cigarettes, uncomplicated; R19.7 Diarrhea, unspecified; K70.10 Alcoholic hepatitis without ascites; E86.0 Dehydration; Z88.5 Allergy status to narcotic agent; Z91.040 Latex allergy status; Z88.0 Allergy status to penicillin; Z79.899 Other long term (current) drug therapy; J44.9 Chronic obstructive pulmonary disease, unspecified; Z20.822 Contact with and (suspected) exposure to COVID-19; K21.00 Gastro-esophageal reflux disease with esophagitis, without bleeding; E87.6 Hypokalemia; K21.9 Gastro-esophageal reflux disease without esophagitis; M50.30 Other cervical disc degeneration, unspecified cervical region; Z68.24 Body mass index [BMI] 24.0-24.9, adult
CPT/HCPCS: 36415; 71045; 80053; 81003; 82150; 82550; 83605; 83690; 83735; 83880; 84100; 84484; 85025; 85027; 86140; 87070; 87077; 93005; 96361; 96374; 99284; 99285-25; A9270-GY; C9113; J3475; J3480; J7030; U0002

== ENCOUNTER 2022-05-23 15:33 | Emergency (ER) | payer MEDICAID | END 2022-05-23 18:17 | disposition left against medical advice (07) | LOC: VM.ED 15:33 | DX: Z53.21 Procedure and treatment not carried out due to patient leaving prior to being seen by health care provider (principal) ==

== ENCOUNTER 2022-05-25 16:13 | Inpatient (IN) | payer MEDICAID ==
[2022-05-25] MEDS ORDERED: Magnesium Sulfate/Water 4 GM in Premix Bag 1 BAG IV ONE (17:30)
[2022-05-25] MEDS ORDERED: Ondansetron 4 MG/2 ML SDV IV PRN (17:30)
[2022-05-25] MEDS ORDERED: Sodium Chloride 0.9% 10 ML Syringe FLUSH PRN (17:30)
[2022-05-25] MEDS ORDERED: Albuterol HFA 18 Gm Inhaler INH PRN (17:38)
[2022-05-25] MEDS ORDERED: hydrOXYzine HCl 25 MG Tab PO PRN (17:38)
[2022-05-25] MEDS ORDERED: Flumazenil 0.1 MG/ML 5 ML MDV IVPUSH PRN (17:58)
[2022-05-25] MEDS: Sodium Chloride 0.9% 1,000 ML IV SCH (18:45)
[2022-05-25] MEDS: Nicotine 21 MG/24 Hr Patch TRDERM SCH (19:29)
[2022-05-25] MEDS: Budesonide 0.5 MG/2 ML Neb Susp INH SCH (20:28)
[2022-05-25] MEDS: Thiamine 100 MG Tab PO SCH (20:29)
[2022-05-25] MEDS: Nystatin Susp 100,000 Unit/ML 5 ML UD Cup PO SCH (20:29)
[2022-05-25] MEDS: Gabapentin 400 MG Cap PO SCH (20:30)
[2022-05-25] MEDS: Al and Mag Hydroxide/Diphenhydramine/Lidocaine/Simethicone 237 ML Bottle PO SCH (20:38)
[2022-05-26] MEDS: Omeprazole 20 MG Cap.CR PO SCH ×2 (05:42→06:38)
[2022-05-26] MEDS: Sodium Chloride 0.9% 1,000 ML IV SCH ×3 (05:43→23:08)
[2022-05-26 07:46] LABS: ANION GAP 12.2 mmol/L (5-15)
[2022-05-26] MEDS: Budesonide 0.5 MG/2 ML Neb Susp INH SCH ×2 (08:32→20:39)
[2022-05-26] MEDS: Nicotine 21 MG/24 Hr Patch TRDERM SCH (08:37)
[2022-05-26] MEDS: Gabapentin 400 MG Cap PO SCH ×4 (08:42→20:39)
[2022-05-26] MEDS: FLUoxetine 20 MG Cap PO SCH (08:42)
[2022-05-26] MEDS: Fluconazole 100 MG Tab PO SCH (08:42)
[2022-05-26] MEDS: Beta-Carotene (Vitamin A) w/Vitamin C & E plus Minerals Tab PO SCH (08:43)
[2022-05-26] MEDS: Lisinopril 20 MG Tab PO SCH (08:45)
[2022-05-26] MEDS: Nystatin Susp 100,000 Unit/ML 5 ML UD Cup PO SCH ×4 (08:49→20:39)
[2022-05-26] MEDS ORDERED: Potassium Chloride 20 MEQ Tab.ER PO SCH (09:00)
[2022-05-26] MEDS: LORazepam 0.5 MG Tab PO PRN ×2 (10:07→20:41)
[2022-05-26] MEDS: Al and Mag Hydroxide/Diphenhydramine/Lidocaine/Simethicone 237 ML Bottle PO SCH ×2 (16:35→20:38)
[2022-05-26] MEDS: Potassium Chloride 20 MEQ Tab.ER PO SCH (17:16)
[2022-05-26] MEDS: Thiamine 100 MG Tab PO SCH (20:39)
[2022-05-27] MEDS: Omeprazole 20 MG Cap.CR PO SCH (06:14)
[2022-05-27] MEDS: Budesonide 0.5 MG/2 ML Neb Susp INH SCH (08:22)
[2022-05-27] MEDS: Potassium Chloride 20 MEQ Tab.ER PO SCH (09:07)
[2022-05-27] MEDS: Fluconazole 100 MG Tab PO SCH (09:07)
[2022-05-27] MEDS: Lisinopril 20 MG Tab PO SCH (09:08)
[2022-05-27] MEDS: Beta-Carotene (Vitamin A) w/Vitamin C & E plus Minerals Tab PO SCH (09:08)
[2022-05-27] MEDS: Gabapentin 400 MG Cap PO SCH ×2 (09:10→13:16)
[2022-05-27] MEDS: Nicotine 21 MG/24 Hr Patch TRDERM SCH (09:10)
[2022-05-27] MEDS: Nystatin Susp 100,000 Unit/ML 5 ML UD Cup PO SCH ×2 (09:10→13:16)
[2022-05-27] MEDS: FLUoxetine 20 MG Cap PO SCH (09:19)
[2022-05-27] MEDS: Al and Mag Hydroxide/Diphenhydramine/Lidocaine/Simethicone 237 ML Bottle PO SCH ×2 (09:20→13:15)
[2022-05-27] MEDS: Sodium Chloride 0.9% 1,000 ML IV SCH (09:23)
[2022-05-27] MEDS ORDERED: Budesonide 0.5 MG/2 ML Neb Susp INH SCH (21:00)
== END 2022-05-27 12:50 | disposition home or self-care (01) | DRG 433 ==
LOC: VM.MS 16:13
PROVIDERS: ADMIT Nurse Practitioner Family; ATTEND Internal Medicine
DX: K70.10 Alcoholic hepatitis without ascites (principal); B37.0 Candidal stomatitis; F33.9 Major depressive disorder, recurrent, unspecified; E44.0 Moderate protein-calorie malnutrition; Z68.1 Body mass index [BMI] 19.9 or less, adult; I10 Essential (primary) hypertension; F41.9 Anxiety disorder, unspecified; E83.42 Hypomagnesemia; F17.210 Nicotine dependence, cigarettes, uncomplicated; Z20.822 Contact with and (suspected) exposure to COVID-19; F10.20 Alcohol dependence, uncomplicated; E87.6 Hypokalemia
CPT/HCPCS: 36415; 80053; 81001; 82550; 83735; 85025; 94640; 97161-GP; A9270-GY; J2405; J3360; J3475; J7030; U0002

== ENCOUNTER 2025-02-16 23:27 | Emergency (ER) | payer OTHER, MEDICAID ==
[2025-02-17] MEDS: Take Home: Acetaminophen/oxyCODONE 325-5 MG, 5 Tab Pack PO ONE
[2025-02-17] MEDS: diazePAM 5 MG Tab PO ONE
[2025-02-17] MEDS: Take Home: Ondansetron 4 MG Tab.DIS, 5 Tab Pack PO ONE (00:01)
== END 2025-02-17 00:07 | disposition home or self-care (01) ==
LOC: SUPCPDRO 23:27 → VM.ED 23:27
DX: M79.10 Myalgia, unspecified site (principal); I10 Essential (primary) hypertension; K21.9 Gastro-esophageal reflux disease without esophagitis; F17.200 Nicotine dependence, unspecified, uncomplicated; Z88.0 Allergy status to penicillin; Z91.040 Latex allergy status; Z88.8 Allergy status to other drugs, medicaments and biological substances; Z79.899 Other long term (current) drug therapy
CPT/HCPCS: 99283; A9270; Q0162

== ENCOUNTER → 2025-03-01 | Day surgery (SDC) | payer MEDICARE, MEDICAID ==
[~2025-03-01] MED LIST: Flumazenil 0.1 MG/ML 5 ML MDV ONE; Midazolam 1 MG/ML 2 ML SDV ONE; Propofol 200 MG/20 ML SDV ONE; fentaNYL 100 MCG/2 ML SDV ONE
[2025-03-01] MEDS: Lactated Ringers 1,000 ML IV SCH (12:04)
[2025-03-01] MEDS: Midazolam 1 MG/ML 2 ML SDV IVPUSH ONE (13:01)
== END ==
LOC: VM.SDS 11:31
PROVIDERS: ATTEND Family Medicine
DX: Z12.11 Encounter for screening for malignant neoplasm of colon (principal); R19.5 Other fecal abnormalities; D12.0 Benign neoplasm of cecum; D12.6 Benign neoplasm of colon, unspecified; K63.5 Polyp of colon; J44.9 Chronic obstructive pulmonary disease, unspecified; K21.9 Gastro-esophageal reflux disease without esophagitis; I10 Essential (primary) hypertension; Z79.899 Other long term (current) drug therapy; Z88.0 Allergy status to penicillin; Z91.040 Latex allergy status; Z88.5 Allergy status to narcotic agent
CPT/HCPCS: 00811; 88305; J2250; J2704; J3010; J3490; J7120